=== PATIENT | female | born 2000 | race Caucasian/White ===

== ENCOUNTER 2022-02-27 12:04 | Emergency (ER) | payer BC ==
[2022-02-27 14:05] LABS: POTASSIUM,K 4.1 mmol/L (3.5-5.1)
== END 2022-02-27 16:39 | disposition home or self-care (01) ==
LOC: MW.ED 12:04
DX: O03.9 Complete or unspecified spontaneous abortion without complication (principal)
CPT/HCPCS: 36415; 76815; 76815-26; 80048; 84702; 85025; 86900; 86901; 99284; J2790

== ENCOUNTER 2022-12-22 22:26 | Inpatient (IN) | payer BC ==
[2022-12-22] MEDS ORDERED: Ondansetron 4 MG/2 ML SDV IVPUSH PRN (22:48)
[2022-12-22] MEDS ORDERED: Sodium Chloride 0.9% 20 ML SDV IV PRN (22:48)
[2022-12-22] MEDS ORDERED: Misoprostol 200 MCG Tab PO PRN (22:48)
[2022-12-22] MEDS ORDERED: Tranexamic Acid IN NACL,ISO-OS 1,000 MG in Premix Bag 1 BAG IV PRN ×2 (22:48)
[2022-12-22] MEDS ORDERED: Sodium Chloride 0.9% 10 ML Syringe FLUSH PRN (22:48)
[2022-12-22] MEDS ORDERED: Lidocaine 1% 50 ML MDV INJECT PRN (22:48)
[2022-12-22] MEDS ORDERED: Water For Irrigation,Sterile 1,000 ML Container IRR PRN (22:48)
[2022-12-22] MEDS ORDERED: Carboprost Tromethamine 250 MCG/1 mL Vial IM PRN (22:48)
[2022-12-22] MEDS ORDERED: Misoprostol 25 MCG (1/4 of 100 MCG) Tab VAG PRN (22:48)
[2022-12-22] MEDS ORDERED: Sodium Chloride 0.9% 2.5 ML Syringe FLUSH PRN (22:48)
[2022-12-22] MEDS ORDERED: Terbutaline 1 MG/ML SDV SUBCUT PRN (22:48)
[2022-12-22] MEDS ORDERED: Methylergonovine 0.2 MG/1 ML Amp IM PRN (22:48)
[2022-12-22] MEDS ORDERED: Oxytocin/0.9 % Sodium Chloride 30 UNIT/500 ML BAG IV SCH ×2 (23:00)
[2022-12-22] MEDS ORDERED: Lactated Ringers 1,000 ML IV SCH (23:00)
[2022-12-22] MEDS ORDERED: Ampicillin 2 GM in Sodium Chloride 0.9% 100 ML IV ONE (23:00)
[2022-12-22] MEDS ORDERED: Nalbuphine 10 MG/0.5 ML Syringe IVPUSH PRN (23:04)
[2022-12-23] MEDS ORDERED: Sodium Chloride 0.9% 100 ML ONE (01:25)
[2022-12-23] MEDS: Misoprostol 25 MCG (1/4 of 100 MCG) Tab VAG PRN ×2 (06:13→10:22)
[2022-12-23] MEDS: Ampicillin 1 GM in Sodium Chloride 0.9% 50 ML IV SCH ×4 (06:15→21:08)
[2022-12-23] MEDS ORDERED: ePHEDrine 50 MG/ML SDV IVPUSH PRN ×2 (19:49)
[2022-12-23] MEDS ORDERED: Phenylephrine HCl 0.5 MG/5 ML AMP IVPUSH PRN (19:49)
[2022-12-23] MEDS ORDERED: Ropivacaine/PF 400 MG/200 ML PCA ONE (19:58)
[2022-12-23] MEDS ORDERED: Dexmedetomidine 200 MCG/2 ML SDV ONE (19:58)
[2022-12-23] MEDS ORDERED: Ropivacaine HCl/PF 400 MG in Premix Bag 1 BAG EPIDUR SCH (20:00)
[2022-12-24] MEDS ORDERED: Bisacodyl 10 MG Supp RECTAL PRN (00:12)
[2022-12-24] MEDS ORDERED: Benzocaine/Menthol 20%-0.5% Spray 78 GM Cannister TOP PRN (00:12)
[2022-12-24] MEDS ORDERED: Ibuprofen 400 MG Tab PO PRN (00:12)
[2022-12-24] MEDS ORDERED: Witch Hazel Medicated Pads 40/Jar TOP PRN (00:12)
[2022-12-24] MEDS ORDERED: Docusate Sodium 100 MG Cap PO PRN (00:12)
[2022-12-24] MEDS ORDERED: Acetaminophen 500 MG Tab PO PRN (00:12)
[2022-12-24] MEDS ORDERED: oxyCODONE 5 MG Tab PO PRN (00:12)
[2022-12-24] MEDS ORDERED: Lanolin 100% Cream 7 GM Tube TOP PRN (00:12)
[2022-12-24] MEDS ORDERED: Hydrocortisone 2.5% Crm 30 GM Tube TOP PRN (00:12)
[2022-12-24 00:21] LABS: PH,UMBILICAL ARTERIAL 7.234 (7.18-7.38); PH,UMBILICAL VENOUS 7.354 (7.25-7.45)
[2022-12-24] MEDS: Ibuprofen 800 MG Tab PO PRN ×2 (02:59→16:19)
[2022-12-24] MEDS: Acetaminophen 500 MG Tab PO PRN (08:50)
[2022-12-25] MEDS: Ibuprofen 800 MG Tab PO PRN (02:46)
[2022-12-25] MEDS: Acetaminophen 500 MG Tab PO PRN (02:47)
[2022-12-25] MEDS ORDERED: Lidocaine 1% 50 ML MDV ONE (04:09)
[2022-12-25 06:16] LABS: HEMATOCRIT 35.2 % (36.0-46.0); HEMOGLOBIN 11.4 g/dL (12.0-16.0)
== END 2022-12-25 13:24 | disposition home or self-care (01) | DRG 560 ==
LOC: MW.OB 22:26 → OBSVTOIN 12-23 23:42 → MW.OB 12-24 02:46
PROVIDERS: ADMIT Obstetrics & Gynecology; ATTEND Obstetrics & Gynecology
PROC: 10E0XZZ Delivery of Products of Conception, External Approach (ICD-10-PCS; principal; 2022-12-23)
PROC: 3E0R3BZ Introduction of Anesthetic Agent into Spinal Canal, Percutaneous Approach (ICD-10-PCS; 2022-12-23)
PROC: 00HU33Z Insertion of Infusion Device into Spinal Canal, Percutaneous Approach (ICD-10-PCS; 2022-12-23)
PROC: 3E0P7VZ Introduction of Hormone into Female Reproductive, Via Natural or Artificial Opening (ICD-10-PCS; 2022-12-23)
PROC: 0HQ9XZZ Repair Perineum Skin, External Approach (ICD-10-PCS; 2022-12-23)
PROC: 3E033VJ Introduction of Other Hormone into Peripheral Vein, Percutaneous Approach (ICD-10-PCS; 2022-12-23)
DX: O14.04 Mild to moderate pre-eclampsia, complicating childbirth (principal); Z37.0 Single live birth; O99.824 Streptococcus B carrier state complicating childbirth; O99.214 Obesity complicating childbirth; O13.4 Gestational [pregnancy-induced] hypertension without significant proteinuria, complicating childbirth; Z87.891 Personal history of nicotine dependence; O70.0 First degree perineal laceration during delivery; O69.81X0 Labor and delivery complicated by cord around neck, without compression, not applicable or unspecified; Z3A.37 37 weeks gestation of pregnancy; E66.9 Obesity, unspecified
CPT/HCPCS: 36415; 59025; 59409; 82803; 85014; 85018; 86850; 86900; 86901; A9270-GY; J0290; J2590; J2795; J3490; J7120

== ENCOUNTER 2025-02-18 00:42 | Inpatient (IN) | payer BC ==
[2025-02-18] MEDS ORDERED: Water For Irrigation,Sterile 1,000 ML Container IRR PRN (01:23)
[2025-02-18] MEDS ORDERED: Sodium Chloride 0.9% 10 ML Syringe FLUSH PRN (01:23)
[2025-02-18] MEDS ORDERED: Carboprost Tromethamine 250 MCG/1 mL Vial IM PRN (01:23)
[2025-02-18] MEDS ORDERED: Sodium Chloride 0.9% 2.5 ML Syringe FLUSH PRN (01:23)
[2025-02-18] MEDS ORDERED: Oxytocin/0.9 % Sodium Chloride 30 UNIT/500 ML BAG IV SCH (01:30)
[2025-02-18 02:28] LABS: MEAN PLATELET VOLUME 10.1 fL (9.4-12.3); NRBC ABSOLUTE 0.00 K/uL (0.00-0.02); NRBC PERCENT 0.0 /100WBC (0.0-0.2); PLATELET COUNT,PLT 331 K/uL (150-400); RED BLOOD CELL COUNT 3.94 M/uL (4.10-5.30); WHITE BLOOD CELL COUNT,WBC 15.27 K/uL (3.9-11.3)
[2025-02-18 02:50] LABS: A/G RATIO 0.6 (0.9-1.6); ALANINE AMINOTRANSFERASE,ALT 23.0 IU/L (14-63); ASPARTATE AMNIOTRANSFERASE,AST 15.0 IU/L (15-37); BILIRUBIN TOTAL 0.2 mg/dL (0.2-1.0); BLOOD UREA NITROGEN,BUN 10.0 mg/dL (7.0-18.0); CARBON DIOXIDE,CO2 21.9 mmol/L (21.0-32.0); CHLORIDE,CL 105.0 mmol/L (98-107); CREATININE 0.6 mg/dL (0.6-1.0); EST CRCL DRUG DOSING (CG) 149.79 mL/min; GLUCOSE RANDOM 96.0 mg/dL (74-106); POTASSIUM,K 3.8 mmol/L (3.5-5.1); PROTEIN TOTAL,TP 6.7 g/dL (6.4-8.2); SODIUM,NA 137.0 mmol/L (136-145)
[2025-02-18 02:51] LABS: ESTIMATED GFR 128.0 mL/min (>60)
[2025-02-18] MEDS: Lactated Ringers 1,000 ML IV SCH (02:56)
[2025-02-18 03:03] LABS: CREATININE,URINE RAND 143.8 mg/dL; PROTEIN CREATININE RATIO,URINE 0.1; PROTEIN,URINE RANDOM 15.3 mg/dL (<11.9)
[2025-02-18] MEDS ORDERED: Terbutaline 1 MG/ML SDV SUBCUT PRN (03:25)
[2025-02-18] MEDS: Misoprostol 25 MCG (1/4 of 100 MCG) Tab VAG PRN (03:45)
[2025-02-18] MEDS: Misoprostol 25 MCG (1/4 of 100 MCG) Tab PO ONE (03:45)
[2025-02-18] MEDS ORDERED: Misoprostol 25 MCG (1/4 of 100 MCG) Tab VAG PRN (07:45)
[2025-02-18] MEDS ORDERED: ePHEDrine 50 MG/ML SDV IVPUSH PRN (12:42)
[2025-02-18] MEDS ORDERED: dexmedeTOMIDine HCl 200 MCG/2 ML SDV EPIDUR SCH (12:45)
[2025-02-18] MEDS ORDERED: Ropivacaine HCl/PF 400 MG in Premix Bag 1 BAG EPIDUR SCH (12:45)
[2025-02-18] MEDS: Ondansetron 4 MG/2 ML SDV IVPUSH PRN (13:21)
[2025-02-18] MEDS: Oxytocin/0.9 % Sodium Chloride 30 UNIT/500 ML BAG IV SCH (15:20)
[2025-02-18] MEDS: Ropivacaine HCl/PF 200 ML ONE (16:10)
[2025-02-18] MEDS: dexmedeTOMIDine HCl 200 MCG/2 ML SDV ONE (16:10)
[2025-02-18] MEDS ORDERED: Aluminum Hydroxide/Magnesium Hydroxide/Simethicone Susp 30 ML Cup PO PRN (22:29)
[2025-02-18] MEDS ORDERED: Lanolin 100% Cream 7 GM Tube TOP PRN (22:29)
[2025-02-18 22:40] LABS: PH,UMBILICAL ARTERIAL 7.38 (7.18-7.38); PH,UMBILICAL VENOUS 7.4 (7.25-7.45)
[2025-02-19] MEDS: Benzocaine/Menthol 20%-0.5% Spray 78 GM Cannister TOP PRN (00:36)
[2025-02-19] MEDS: Witch Hazel Medicated Pads 40/Jar TOP PRN (00:37)
[2025-02-19 05:47] LABS: BASOPHILS ABSOLUTE AUTO 0.06 K/uL (0.00-0.20); BASOPHILS PERCENT AUTO 0.3 % (0.0-1.0); EOSINOPHILS ABSOLUTE AUTO 0.12 K/uL (0.00-0.45); EOSINOPHILS PERCENT AUTO 0.7 % (0.0-6.0); IMMATURE GRAN ABSOLUTE AUTO 0.13 K/uL (0.00-0.05); IMMATURE GRAN PERCENT AUTO 0.7 % (0.0-0.4); LYMPHOCYTES ABSOLUTE AUTO 2.54 K/uL (1.00-4.80); LYMPHOCYTES PERCENT AUTO 14.1 % (24.0-44.0); MEAN PLATELET VOLUME 10.0 fL (9.4-12.3); MONOCYTES ABSOLUTE AUTO 1.41 K/uL (0.00-0.80); MONOCYTES PERCENT AUTO 7.8 % (0.0-8.0); NEUTROPHILS ABSOLUTE AUTO 13.74 K/uL (1.80-7.70); NEUTROPHILS PERCENT AUTO 76.4 % (41.0-71.0); NRBC ABSOLUTE 0.00 K/uL (0.00-0.02); NRBC PERCENT 0.0 /100WBC (0.0-0.2); PLATELET COUNT,PLT 300 K/uL (150-400); RED BLOOD CELL COUNT 4.03 M/uL (4.10-5.30); WHITE BLOOD CELL COUNT,WBC 18.00 K/uL (3.9-11.3)
== END 2025-02-19 23:40 | disposition home or self-care (01) | DRG 560 ==
LOC: MW.OBCHECK 00:42 → MW.OB 00:43 → MW.OBCHECK 01:23 → MW.OB 01:23 → OBSVTOIN 21:50 → MW.OB 02-19 00:29
PROVIDERS: ADMIT Obstetrics & Gynecology; ATTEND Obstetrics & Gynecology
PROC: 10E0XZZ Delivery of Products of Conception, External Approach (ICD-10-PCS; principal; 2025-02-18)
PROC: 3E0R3BZ Introduction of Anesthetic Agent into Spinal Canal, Percutaneous Approach (ICD-10-PCS; 2025-02-18)
PROC: 3E033VJ Introduction of Other Hormone into Peripheral Vein, Percutaneous Approach (ICD-10-PCS; 2025-02-18)
PROC: 10907ZC Drainage of Amniotic Fluid, Therapeutic from Products of Conception, Via Natural or Artificial Opening (ICD-10-PCS; 2025-02-18)
PROC: 3E0P7VZ Introduction of Hormone into Female Reproductive, Via Natural or Artificial Opening (ICD-10-PCS; 2025-02-18)
DX: O13.4 Gestational [pregnancy-induced] hypertension without significant proteinuria, complicating childbirth (principal); O99.214 Obesity complicating childbirth; O99.824 Streptococcus B carrier state complicating childbirth; Z3A.38 38 weeks gestation of pregnancy; Z37.0 Single live birth; Z98.890 Other specified postprocedural states; Z79.899 Other long term (current) drug therapy
CPT/HCPCS: 01967; 36415; 51702; 59025; 59409; 76810; 76810-26; 80053; 82570; 82803; 84156; 85025; 85027; 86592; 86850; 86900; 86901; A9270-GY; J0290; J0665; J2371; J2405; J2590; J2795; J7120